=== PATIENT | female | born 1970 ===

== ENCOUNTER 2017-11-17 17:00 | Emergency (ER) | payer OTHER ==
[2017-11-17 17:18] VITALS: BMI 32.9
[2017-11-17 17:23] VITALS: BP 129/74; PULSE 78; RESP 18; TEMP 98.6; O2SAT 96
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
[2017-11-17 18:27] LABS: HCG,QUALITATIVE URINE NEGATIVE (NEGATIVE)
[2017-11-17 18:28] LABS: SQUAMOUS EPITHIAL < 1 /hpf (0-5); URINE BILIRUBIN NEGATIVE (NEGATIVE); URINE BLOOD NEGATIVE (NEGATIVE); URINE CLARITY Hazy (Clear); URINE COLOR Yellow (YELLOW); URINE GLUCOSE (UA) NORMAL (Normal); URINE LEUKOCYTE ESTERASE NEG Leu/uL (Negative); URINE PROTEIN NEGATIVE (NEGATIVE); URINE UROBILINOGEN NORMAL mg/dL (0.2-1.0)
[2017-11-17 18:58] LABS: URINE BACTERIA FEW (<OCC)
== END 2017-11-17 18:53 | disposition home or self-care (01) ==
LOC: C.ER 17:00
DX: T76.21XD Adult sexual abuse, suspected, subsequent encounter (principal)